=== PATIENT | female | born 1950 | race Caucasian/White ===

== ENCOUNTER 2020-08-14 09:19 | Day surgery (SDC) | payer MEDICARE ==
[2020-08-11 08:48] VITALS: BMI 24.1
[~2020-08-14 09:19] MED LIST: LACTATED RINGERS 1,000 ML IV SCH; LIDOCAINE 1% (10MG/ML) FOR IV START INTRADERMA PRN
[2020-08-14 09:45] VITALS: TEMP 98.8
[2020-08-14] MEDS ORDERED: LIDOCAINE 1% INJ 10MG/ML (20 ML MDV) ONE (10:20)
[2020-08-14] MEDS ORDERED: PROPOFOL 10 MG/ML 20 ML VIAL IV ONE (10:20)
--- NOTE | 2020-08-14 10:36 | P.PCN ---
Date of Procedure: 08/14/20 Procedure(s) Performed: BRIEF HISTORY: Patient is a 70-year-old, pleasant, white female scheduled for an upper endoscopy as a part of evaluation of epigastric pain, nausea and abdominal bloating for the last 3 weeks. She denies any emesis.. PROCEDURE PERFORMED: Esophagogastroduodenoscopy with biopsy. PREOPERATIVE DIAGNOSIS: Chronic epigastric pain and intermittent nausea and abdominal. IV sedation per anesthesia. PROCEDURE: After informed consent was obtained, the patient was brought into the endoscopy unit. IV sedation was administered by Anesthesia under continuous monitoring. Initially the Olympus GIF-140 video endoscope was inserted into the mouth. Esophagus intubated without any difficulty. It was gradually advanced into the stomach and duodenum and carefully examined. The bulb and the second part of the duodenum appeared normal. Prep was done from the duodenum to rule out celiac disease. The scope at this time was withdrawn to the stomach, adequately insufflated with air, and upon careful examination, mucosa of the antrum, had mild gastritis and biopsies were done from this area. The body, cardia and the fundus appeared normal. The scope was then withdrawn into the esophagus. The GE junction was located at 39 cm from the incisors. There was a superficial areas of erythema at the GE junction consistent with LA grade a reflux esophagitis. The rest of the esophagus appeared normal. There were no erosions or ulcerations seen and the patient tolerated the procedure well. IMPRESSION: 1. Mild antral gastritis. 2. Patchy areas of erythema the GE junction consistent with LA grade A reflux esophagitis. RECOMMENDATIONS: The findings of this examination were discussed with the patient as well as a family. She was advised to follow with the biopsy results. In the meantime she'll start on PPI be taken once daily half hour before breakfast and follow antireflux.
[2020-08-14 11:03] VITALS: BP 115/78; PULSE 64; RESP 16
== END 2020-08-14 11:39 | disposition home or self-care (01) ==
LOC: ORWHC2ENDO 09:19
PROVIDERS: ATTEND Internal Medicine Gastroenterology
DX: K29.50 Unspecified chronic gastritis without bleeding (principal); K21.00 Gastro-esophageal reflux disease with esophagitis, without bleeding; J44.9 Chronic obstructive pulmonary disease, unspecified; Z91.041 Radiographic dye allergy status; Z79.51 Long term (current) use of inhaled steroids; Z88.0 Allergy status to penicillin; Z91.013 Allergy to seafood; Z91.048 Other nonmedicinal substance allergy status
CPT/HCPCS: 88305; 43239; J2001; J2704

== ENCOUNTER → 2024-09-03 | Outpatient (CLI) | payer MEDICARE ==
[~2024-09-03] MED LIST changes: -LACTATED RINGERS 1,000 ML IV SCH; -LIDOCAINE 1% (10MG/ML) FOR IV START INTRADERMA PRN; +SODIUM CHLORIDE 0.9% 250 ML in EMPTY BAG 1 BAG IV PRN; +SODIUM CHLORIDE 0.9% 500 ML 500 ML in EMPTY BAG 1 BAG IV PRN; +ZOLEDRONIC ACID 5 MG in SODIUM CHLORIDE 0.9% 100 ML IV NR
[2024-09-03] MEDS: SODIUM CHLORIDE 0.9% 500 ML 500 ML in EMPTY BAG 1 BAG IV PRN (14:05)
[2024-09-03] MEDS: ZOLEDRONIC ACID 5 MG in SODIUM CHLORIDE 0.9% 100 ML IV NR (14:05)
[2024-09-03 14:09] VITALS: BP 143/93; PULSE 70; RESP 16; TEMP 97.8
== END ==
LOC: PROCWHC3 13:44
PROVIDERS: ATTEND Internal Medicine
DX: M81.0 Age-related osteoporosis without current pathological fracture (principal)
CPT/HCPCS: 96365; J3489

== ENCOUNTER → 2025-02-23 | Outpatient (CLI) | payer MEDICARE ==
[2025-02-23 07:52] VITALS: BP 148/93; PULSE 73; RESP 16; TEMP 97.7
--- NOTE | 2025-02-23 15:34 | P.PAINPG ---
Objective - Vital Signs Vital signs: Intake & Output 02/22/25 02/23/25 02/23/25 18:59 06:59 18:59 Weight 61.235 kg PQRS Measure Charge Sheet Comment: HISTORY OF PRESENT ILLNESS: A 74 yr old female w daughter at side as a referral from Dr Miller presents today w severe and chronic mid & lower back pain > 2 yrs secondary to Thoracic dextroscoliosis, T8/T9/ L1 compression fractures, radiculopathy, spondylosis and facet arthropathy without myelopathy for evaluation. Pt states pain level is provoked at 7 /10 in intensity, constant, localized in the thoracolumbar spine, predominantly axial, sharp in character w occasional shooting pain towards the R hip and thigh. Pain is provoked by twisting. Pain is alleviated by PT x 6 wks which ended in Nov 2024, physician guided home stretches daily since Nov 2024, medications, topical, heat, ice, manual massage, repositioning and rest . Oswestry axial pain score at 34. PMH: OA, Asthma, COPD, GERD, Adrenal Insufficiency PSH: Lumbar Surgery (1974), Collapsed Lung (12/31), EGD (2019), R Shoulder surgery, R Knee Replacement (2007), L Knee Replacement (2022), L Wrist (1994), Hysterectomy (1983) SH: Former tobacco user, No ETOH use, No illicit drug use FH: Non contributory All: See list Medications include Robaxin, Ibu, ASA REVIEW OF ORGAN SYSTEMS: CONSTITUTIONAL: No fevers or chills. No recent weight loss. NEUROLOGICAL: + numbness and tingling along the distal extremities. No seizure disorders or headaches. MUSCULOSKELETAL: + pain PSYCHIATRIC: Denies current depression or suicidal thoughts. Physical Examinations : Constitutional : Cooperative , not in acute distress . Neurologic : Cranial nerve II to XII intact. No focal neurological deficits. Psychiatric : alert & oriented x 3. Matching mood & appropriate affect. Judgment & insight intact. Musculoskeletal : Cervical Spine Motor strength in the deltoid and biceps: Normal right side. Normal Left side Motor strength biceps and the wrist extensors: Normal right side . Normal left side Motor strength in the triceps muscle: Normal right side. Normal left side Deep tendon reflexes: Normal at the biceps. Normal at Brachioradialis. Normal at triceps Vertebral body tenderness to deep palpation over Cervical facet loading test: positive bilaterally Spurling test: positive bilaterally Neck distraction test: positive bilaterally Shelby sign: positive bilaterally Lumbar spine Motor strength lower extremities ,thigh and legs 5/5 Right side , 5/5 Left side Deep tendon reflexes : Normal Knee Jerk. Normal Ankle Jerk Vertebral body tenderness over L1, L2 Soriano Test positive R T12-L1, L1-L2 Lumbar facet Loading Test: positive Right / positive Left Range of motion of the lumbar spine Flexion 30 degrees, extension 10 degrees Straight Leg Raise test: Left/ Right positive at degrees Antony test: positive right / positive left. Severe tenderness over the Sacroiliac joint on the Right / Left sides Gaenslen test: positive bilaterally Seated flexion test: positive bilaterally. Sacral spine : Severe tenderness over the Sacroiliac joint: right side / left side Range of motion: Flexion of the lumbar spine <60 degrees Range of motion: Extension of the lumbar spine <20 degrees Gaenslen's Test positive Antony test: positive right side / left side Thigh Thrust Test Sacral Thrust Test Imaging: MRI non contrast thoracic spine from 01/25/[address] non contrast chest from 12/10/24 reviewed Assessment/ Plan : Thoracic dextroscoliosis, T8/T9/ L1 compression fractures Recommendation of R TFESI T12-L1, L1-L2 #1. Risks, benefits of procedure discussed and patient verbalized understanding. Admits to anti- coagulant use or medical history of diabetes. Protocol for discontinuation/ continuation of medications eber procedure discussed. All questions answered. I have spent greater than 30 minutes on patient care today. Dr Loyola was available by phone for the evaluation of this patient. The time was used to review the medical records including relevant urine studies and Prescription history (MAPs), review of the available imaging, evaluation and examination of the patient, coordination of care with the medical staff and if applicable referring physicians, as well as creation of the medical record - Pain Location Bilateral Upper Back Non-Pharmacological Interventions: Chiropractic Treatment, Heat, Ice, Inactivity, Physical Therapy, Position/Reposition Pharmacological Interventions: Epidural, PRN Medication, Topical Medication PQRS Narrative: Smoking Status Former smoker Home Medications: Ambulatory Orders Aspirin [Adult Low Dose Aspirin EC] 81 mg PO DIRECTED 08/11/20 Budesonide [Pulmicort] 0.5 mg INHALATION BID PRN 08/11/20 Cholecalciferol [Vitamin D3 (25 Mcg = 1000 Iu)] 4,000 unit PO DAILY 08/11/20 Cyanocobalamin (Vitamin B-12) [Vitamin B-12] 1,000 mcg PO DAILY 08/11/20 Docusate [Colace] 200 mg PO DAILY 08/11/20 L.acidoph,Paracasei, B.lactis [Probiotic] 1 each PO DAILY 08/11/20 Magnesium 250 mg PO DAILY 08/11/20 Multivitamins, Thera [Multivitamin (formulary)] 1 tab PO DAILY 08/11/20 Acetaminophen [Tylenol Arthritis] 1,300 mg PO DIRECTED PRN 09/03/24 Hydrocortisone 5 mg PO HS 09/03/24 Hydrocortisone [Cortef] 10 mg PO DAILY 09/03/24 Ibuprofen [Motrin Ib] 200 mg PO Q6HR PRN 09/03/24 Pantoprazole [Protonix] 40 mg PO DAILY 09/03/24 Controlled Substance Measures - Controlled Substance Measures Is patient prescribed a controlled substance at discharge?: Yes When asked, does pt state using other controlled substances?: No If prescribed controlled substance>3 days was MAPS reviewed?: Prescribed <3 Days
== END ==
LOC: PNWHC3 07:23
PROVIDERS: ATTEND Specialist
DX: M48.56XA Collapsed vertebra, not elsewhere classified, lumbar region, initial encounter for fracture (principal); M41.34 Thoracogenic scoliosis, thoracic region; Z87.891 Personal history of nicotine dependence; Z88.6 Allergy status to analgesic agent; Z88.5 Allergy status to narcotic agent; Z91.013 Allergy to seafood; Z91.048 Other nonmedicinal substance allergy status
CPT/HCPCS: 99211